=== PATIENT | female | born 1965 | race Caucasian/White ===

== ENCOUNTER 2020-03-09 22:43 | Emergency (ER) | payer MEDICARE, OTHER ==
[2020-03-09] MEDS ORDERED: Ibuprofen 800 MG Tab PO ONE (22:46)
[2020-03-09] MEDS ORDERED: Acetaminophen 500 MG Tab PO ONE (22:46)
[2020-03-09] MEDS ORDERED: Amoxicillin/Clavulanate K 875-125 MG Tab PO STA (22:46)
--- NOTE | 2020-03-09 22:51 | EDM.PDOC ---
ED HPI GENERAL MEDICAL PROBLEM - General Stated Complaint: cat scratch Time Seen by Provider: 03/09/20 22:45 Source of Information: Reports: Patient History Limitations: Reports: No Limitations - History of Present Illness INITIAL COMMENTS - FREE TEXT/NARRATIVE: Patient presented to the ED because of pain,redness, and swelling over her right leg. She was scratched by a neighbors cat yesterda. - Related Data Allergies Allergy/AdvReac Type Severity Reaction Status Date / Time azithromycin Allergy Rash Verified 03/09/20 23:02 erythromycin base Allergy Rash Verified 03/09/20 23:02 Penicillins Allergy Rash Verified 03/09/20 23:02 Home Meds: Home Meds Amoxicillin/Clavulanate K [Augmentin 875-125 MG] 1 tab PO BID #20 tab 03/09/20 [Rx] Cevimeline HCl 30 mg PO TID 03/09/20 [History] DULoxetine [Cymbalta] 30 mg PO BEDTIME 03/09/20 [History] DULoxetine [Cymbalta] 60 mg PO DAILY 03/09/20 [History] Gabapentin [Neurontin] 300 mg PO TID 03/09/20 [History] Ibuprofen 800 mg PO Q8H PRN #30 tablet 03/09/20 [Rx] Oxybutynin 5 mg PO DAILY 03/09/20 [History] cephALEXin [Keflex] 500 mg PO Q8H #30 cap 03/09/20 [Rx] traZODone HCl [Trazodone HCl] 200 mg PO BEDTIME 03/09/20 [History] ED ROS GENERAL - Review of Systems Review Of Systems: See Below Constitutional: Reports: No Symptoms HEENT: Reports: No Symptoms Respiratory: Reports: No Symptoms Cardiovascular: Reports: No Symptoms Endocrine: Reports: No Symptoms GI/Abdominal: Reports: No Symptoms : Reports: No Symptoms Musculoskeletal: Reports: No Symptoms Skin: Reports: Rash ED EXAM, SKIN/RASH Exam: See Below Exam Limited By: No Limitations General Appearance: Alert, No Apparent Distress Ears: Normal External Exam, Normal Canal Nose: Normal Inspection, Normal Mucosa Throat/Mouth: Normal Inspection, Normal Lips, Normal Teeth Head: Atraumatic, Normocephalic Neck: Normal Inspection, Supple, Non-Tender, Full Range of Motion Respiratory/Chest: No Respiratory Distress, Lungs Clear, Normal Breath Sounds Cardiovascular: Normal Peripheral Pulses, Regular Rate, Rhythm, No Edema, No Gallop GI/Abdominal: Normal Bowel Sounds, Soft, Non-Tender, No Organomegaly Back Exam: Normal Inspection, Full Range of Motion Extremities: Normal Inspection, Normal Range of Motion, Non-Tender Neurological: Alert, Oriented, CN II-XII Intact, Normal Cognition, Normal Gait Psychiatric: Normal Affect, Normal Mood Skin: Warm, Intact, Erythema Course - Vital Signs Text/Narrative:: Keflex 500 mg po x1 Ibuprofen 800 mg with tylenol 1000 mg po x1 - Orders/Labs/Meds Meds: Medications Discontinued Medications Generic Name Dose Route Start Last Admin Trade Name Freq PRN Reason Stop Dose Admin Acetaminophen 1,000 mg 03/09/20 22:46 Tylenol Extra Strength PO 03/09/20 22:47 ONETIME ONE Amoxicillin/Clavulanate Potassium 1 tab 03/09/20 22:46 Augmentin 875 Mg/125 Mg PO 03/09/20 22:47 NOW STA Cephalexin 500 mg 03/09/20 23:02 Keflex PO 03/09/20 23:03 NOW STA Ibuprofen 800 mg 03/09/20 22:46 Motrin PO 03/09/20 22:47 ONETIME ONE Departure - Departure Time of Disposition: 23:15 Disposition: Home, Self-Care 01 Condition: Good Clinical Impression: Cat scratch fever - Discharge Information Prescriptions: Amoxicillin/Clavulanate K [Augmentin 875-125 MG] 1 tab PO BID #20 tab Ibuprofen 800 mg PO Q8H PRN #30 tablet PRN Reason: Pain cephALEXin [Keflex] 500 mg PO Q8H #30 cap Instructions: Cat-Scratch Disease, Adult Referrals: Shayy Vallecillo NP [Primary Care Provider] - Additional Instructions: Please read discharge instructions on cat scratch fever Take keflex 500 mg 3 times daily for 10days Ibuprofen 800 mg with tylenol 1000 mg every 8 ours as needed for pain/fever Follow up as needed
[2020-03-09] MEDS ORDERED: Cephalexin 500 MG Cap PO STA (23:02)
== END 2020-03-09 23:24 | disposition home or self-care (01) ==
LOC: FB.ED 22:43
DX: A28.1 Cat-scratch disease (principal); Z88.1 Allergy status to other antibiotic agents; Z88.0 Allergy status to penicillin; Z79.899 Other long term (current) drug therapy
CPT/HCPCS: 99283; A9270

== ENCOUNTER 2020-04-20 06:39 | Emergency (ER) | payer MEDICARE, OTHER ==
[2020-04-20] MEDS ORDERED: LORazepam 2 MG/ML SDV IVPUSH ONE (06:51)
[2020-04-20] MEDS ORDERED: Sodium Chloride 0.9% 10 ML Syringe FLUSH PRN (06:55)
[2020-04-20] MEDS ORDERED: Ondansetron 4 MG/2 ML SDV IVPUSH ONE (07:29)
[2020-04-20] MEDS ORDERED: Sodium Chloride 0.9% 1,000 ML IV ONE (08:22)
--- NOTE | 2020-04-20 08:44 | EDM.PDOC ---
ED HPI GENERAL MEDICAL PROBLEM - General Chief Complaint: Neuro Symptoms/Deficits Stated Complaint: SEIZURE Time Seen by Provider: 04/20/20 07:00 Source of Information: Reports: Patient History Limitations: Reports: No Limitations - History of Present Illness INITIAL COMMENTS - FREE TEXT/NARRATIVE: pt comes in from home seizing at entrance of the ER , she had a tonic clonic Sz lasting about 10 minutes here, resolved after ativan, pt became post ictal for about an hour, now she is still confused but follow commands and answer questions appropriately, tells me she has not been feeling well since placement of her morphine pump 2 days ago, described anorexia, poor feeding and gen weakness, this morning woke up experiencing fever and chills and does not remember what happened after that. pt report Hx of chronic low back pain and depression . pt denies any Hx of head trauma, any cough or chest pain or urinary sx or any other associated sx or medical concerns. - Related Data Allergies Allergy/AdvReac Type Severity Reaction Status Date / Time azithromycin Allergy Rash Verified 04/20/20 07:19 erythromycin base Allergy Rash Verified 04/20/20 07:19 Penicillins Allergy Rash Verified 04/20/20 07:19 Home Meds: Home Meds Cevimeline HCl 30 mg PO TID 03/09/20 [History] DULoxetine [Cymbalta] 30 mg PO DAILY 03/09/20 [History] DULoxetine [Cymbalta] 60 mg PO BEDTIME 03/09/20 [History] Gabapentin [Neurontin] 900 mg PO TID 03/09/20 [History] Oxybutynin 10 mg PO DAILY 03/09/20 [History] traZODone HCl [Trazodone HCl] 200 mg PO BEDTIME 03/09/20 [History] Albuterol Sulfate [Albuterol Sulfate Hfa] 2 puff IH Q4H PRN 04/20/20 [History] Fluticasone Propion/Salmeterol [Advair 250-50 Diskus] 1 each IH BID 04/20/20 [History] Hydrocodone/Acetaminophen [[place] 5-325 Tablet] 1 each PO Q4H 04/20/20 [History] Varenicline [Chantix] 1 mg PO BID 04/20/20 [History] atorvaSTATin [Lipitor] 10 mg PO DAILY 04/20/20 [History] Past Medical History Respiratory History: Reports: Asthma Gastrointestinal History: Reports: Other (See Below) Other Gastrointestinal History: History of stomach CA, in remission now. Musculoskeletal History: Reports: Other (See Below) Other Musculoskeletal History: Has experienced leg pain since having non- Hodgkins Lymphoma, uses pain pump for control. Neurological History: Reports: Other (See Below) Other Neuro History: Episode of seizure-like activity, 04-20-20. Psychiatric History: Reports: Depression Immunologic History: Reports: Other (See Below) Other Immunologic History: Sjogrens. Oncologic (Cancer) History: Reports: Non-Hodgkin's Lymphoma Social & Family History - Family History Family Medical History: Noncontributory - Tobacco Use Smoking Status *Q: Current Every Day Smoker Years of Tobacco use: 35 Packs/Tins Daily: 1 - Caffeine Use Caffeine Use: Reports: Coffee, Soda ED ROS GENERAL - Review of Systems Review Of Systems: See Below Constitutional: Reports: Fatigue HEENT: Reports: No Symptoms Respiratory: Reports: No Symptoms Cardiovascular: Reports: No Symptoms GI/Abdominal: Denies: Abdominal Pain, Diarrhea : Reports: No Symptoms Musculoskeletal: Reports: Back Pain Skin: Reports: No Symptoms Neurological: Reports: Headache, Seizure, Weakness Psychiatric: Reports: Depression ED EXAM, GENERAL - Physical Exam Exam: See Below Exam Limited By: No Limitations General Appearance: Alert, No Apparent Distress Eye Exam: Bilateral Eye: Normal Inspection Nose: Normal Inspection Throat/Mouth: Normal Inspection, Normal Oropharynx Head: Atraumatic, Normocephalic Neck: Normal Inspection, Supple Respiratory/Chest: No Respiratory Distress, No Accessory Muscle Use Cardiovascular: Normal Peripheral Pulses, Regular Rate, Rhythm GI/Abdominal: Normal Bowel Sounds, Soft, Non-Tender Back Exam: Normal Inspection, Full Range of Motion Extremities: Normal Inspection, Normal Range of Motion Neurological: Alert, Oriented, CN II-XII Intact Skin Exam: Warm Course - Vital Signs Text/Narrative:: pt is alert now after 2 mg ativan , still looking little confused and weak, labs / CXR/ CT results were explained to pt. WBC and lactic acid are elevated without obvious source of infection , covid test is neg. pt had tonic clonic SZ and presumed sepsis Discussed with Dr solorio at [place] and he was in acceptance of pt care. blood cultures were taken , vancomycin was given Last Recorded V/S: Last Vital Signs Temp 38.7 C H 04/20/20 07:15 Pulse Resp BP Pulse Ox - Orders/Labs/Meds Orders: Active Orders 24 hr Category Date Time Status Chest 1V Frontal [CR] Stat Exams 04/20/20 06:51 Taken Head wo Cont [CT] Stat Exams 04/20/20 06:51 Taken CORONAVIRUS COVID-19 PCR PHL Stat Lab 04/20/20 09:17 Ordered CULTURE BLOOD [BC] Urgent Lab 04/20/20 07:20 Received CULTURE BLOOD [BC] Urgent Lab 04/20/20 07:25 Results Sodium Chloride 0.9% [Normal Saline] 1,000 ml Med 04/20/20 08:22 Active IV .BOLUS Sodium Chloride 0.9% [Saline Flush] Med 04/20/20 06:55 Active 10 ml FLUSH ASDIRECTED PRN cefTRIAXone [Rocephin] 1 gm Med 04/20/20 09:18 Ordered Sodium Chloride 0.9% [Normal Saline] 50 ml IV ONETIME Blood Culture x2 Reflex Set [OM.PC] Urgent Oth 04/20/20 07:20 Ordered Medication Orders Sodium Chloride (Normal Saline) 1,000 mls @ 999 mls/hr IV .BOLUS ONE Stop: 04/20/20 09:22 Last Admin: 04/20/20 08:20 Dose: 999 mls/hr Documented by: RAMIRO Sodium Chloride (Saline Flush) 10 ml FLUSH ASDIRECTED PRN PRN Reason: Keep Vein Open Last Admin: 04/20/20 06:55 Dose: 10 ml Documented by: GREGORIO Labs: Laboratory Tests 04/20/20 04/20/20 04/20/20 Range/Units 07:10 07:10 07:20 WBC 16.6 H (4.5-12.0) X10-3/uL RBC 5.86 H (3.23-5.20) x10(6)uL Hgb 17.3 H (11.5-15.5) g/dL Hct 52.7 H (30.0-51.3) % MCV 90.0 (80-96) fL MCH 29.5 (27.7-33.6) pg MCHC 32.8 (32.2-35.4) g/dL RDW 14.0 (11.5-15.5) % Plt Count 270 (125-369) X10(3)uL MPV 8.0 (7.4-10.4) fL Neut % (Auto) 78.6 (46-82) % Lymph % (Auto) 10.9 L (13-37) % [place] % (Auto) 8.4 (4-12) % Eos % (Auto) 0 L (1.0-5.0) % Baso % (Auto) 2 (0-2) % Neut # (Auto) 12.9 H (1.6-8.3) # Lymph # (Auto) 1.8 (0.6-5.0) # [place] # (Auto) 1.4 H (0.0-1.3) # Eos # (Auto) 0.1 (0.0-0.8) # Baso # (Auto) 0.3 H (0.0-0.2) # Sodium (135-145) mmol/L Potassium (3.5-5.3) mmol/L Chloride (100-110) mmol/L Carbon Dioxide (21-32) mmol/L BUN (7-18) mg/dL Creatinine (0.55-1.02) mg/dL Est Cr Clr Drug Dosing mL/min Estimated GFR (MDRD) (>60) BUN/Creatinine Ratio (9-20) Glucose (80-116) mg/dL Lactic Acid (0.4-2.0) mmol/L Calcium (8.6-10.2) mg/dL Total Bilirubin (0.1-1.3) mg/dL AST (5-25) IU/L ALT (12-36) U/L Alkaline Phosphatase (56-112) IU/L Total Protein (6.0-8.0) g/dL Albumin (3.5-5.2) g/dL Globulin g/dL Albumin/Globulin Ratio Urine Color [place] (YELLOW) Urine Appearance Cloudy (CLEAR) Urine pH 5.0 (5.0-6.5) Ur Specific [place] 1.025 (1.010-1.025) Urine Protein 100 H (NEGATIVE) mg/dL Urine Glucose (UA) Normal (NORMAL) mg/dL Urine Ketones Negative (NEGATIVE) mg/dL Urine Occult Blood Large H (NEGATIVE) Urine Nitrite Negative (NEGATIVE) Urine Bilirubin Negative (NEGATIVE) Urine Urobilinogen Normal (NEGATIVE) mg/dL Ur Leukocyte Esterase Negative (NEGATIVE) Urine RBC Packed H (0-5) Urine Opiates Screen Positive H (NEGATIVE) Ur Oxycodone Screen Positive H (NEGATIVE) Ur Propoxyphene Screen Negative (NEGATIVE) Ur Barbituates Screen Negative (NEGATIVE) Ur Tricyclics Screen Negative (NEGATIVE) Ur Phencyclidine Scrn Negative (NEGATIVE) Ur Amphetamine Screen Negative (NEGATIVE) Urine MDMA Screen Negative (NEGATIVE) U Benzodiazepines Scrn Negative (NEGATIVE) U Cocaine Metab Screen Negative (NEGATIVE) U Marijuana (THC) Screen Negative (NEGATIVE) 04/20/20 04/20/20 Range/Units 07:20 07:20 WBC (4.5-12.0) X10-3/uL RBC (3.23-5.20) x10(6)uL Hgb (11.5-15.5) g/dL Hct (30.0-51.3) % MCV (80-96) fL MCH (27.7-33.6) pg MCHC (32.2-35.4) g/dL RDW (11.5-15.5) % Plt Count (125-369) X10(3)uL MPV (7.4-10.4) fL Neut % (Auto) (46-82) % Lymph % (Auto) (13-37) % [place] % (Auto) (4-12) % Eos % (Auto) (1.0-5.0) % Baso % (Auto) (0-2) % Neut # (Auto) (1.6-8.3) # Lymph # (Auto) (0.6-5.0) # [place] # (Auto) (0.0-1.3) # Eos # (Auto) (0.0-0.8) # Baso # (Auto) (0.0-0.2) # Sodium 142 (135-145) mmol/L Potassium 2.6 L* (3.5-5.3) mmol/L Chloride 101 (100-110) mmol/L Carbon Dioxide 24 (21-32) mmol/L BUN 11 (7-18) mg/dL Creatinine 1.3 H (0.55-1.02) mg/dL Est Cr Clr Drug Dosing 48.74 mL/min Estimated GFR (MDRD) 42 L (>60) BUN/Creatinine Ratio 8.5 L (9-20) Glucose 147 H (80-116) mg/dL Lactic Acid 5.7 H* (0.4-2.0) mmol/L Calcium 9.3 (8.6-10.2) mg/dL Total Bilirubin 0.7 (0.1-1.3) mg/dL AST 22 (5-25) IU/L ALT 18 (12-36) U/L Alkaline Phosphatase 118 H (56-112) IU/L Total Protein 8.8 H (6.0-8.0) g/dL Albumin 3.7 (3.5-5.2) g/dL Globulin 5.1 g/dL Albumin/Globulin Ratio 0.7 Urine Color (YELLOW) Urine Appearance (CLEAR) Urine pH (5.0-6.5) Ur Specific [place] (1.010-1.025) Urine Protein (NEGATIVE) mg/dL Urine Glucose (UA) (NORMAL) mg/dL Urine Ketones (NEGATIVE) mg/dL Urine Occult Blood (NEGATIVE) Urine Nitrite (NEGATIVE) Urine Bilirubin (NEGATIVE) Urine Urobilinogen (NEGATIVE) mg/dL Ur Leukocyte Esterase (NEGATIVE) Urine RBC (0-5) Urine Opiates Screen (NEGATIVE) Ur Oxycodone Screen (NEGATIVE) Ur Propoxyphene Screen (NEGATIVE) Ur Barbituates Screen (NEGATIVE) Ur Tricyclics Screen (NEGATIVE) Ur Phencyclidine Scrn (NEGATIVE) Ur Amphetamine Screen (NEGATIVE) Urine MDMA Screen (NEGATIVE) U Benzodiazepines Scrn (NEGATIVE) U Cocaine Metab Screen (NEGATIVE) U Marijuana (THC) Screen (NEGATIVE) Meds: Medications Generic Name Dose Route Start Last Admin Trade Name Freq PRN Reason Stop Dose Admin Sodium Chloride 1,000 mls @ 999 mls/hr 04/20/20 08:22 04/20/20 08:20 Normal Saline IV 04/20/20 09:22 999 mls/hr .BOLUS ONE Administration Sodium Chloride 10 ml 04/20/20 06:55 04/20/20 06:55 Saline Flush FLUSH 10 ml ASDIRECTED PRN Administration Keep Vein Open Discontinued Medications Generic Name Dose Route Start Last Admin Trade Name Freq PRN Reason Stop Dose Admin Vancomycin HCl 1,500 mg/ 250 mls @ 166.667 mls/hr 04/20/20 08:55 Sodium Chloride IV 04/20/20 08:56 ONETIME ONE Lorazepam 2 mg 04/20/20 06:51 04/20/20 06:55 Ativan IVPUSH 04/20/20 06:52 2 mg ONETIME ONE Administration Ondansetron HCl 4 mg 04/20/20 07:29 04/20/20 08:03 Zofran IVPUSH 04/20/20 07:30 4 mg ONETIME ONE Administration Departure - Departure Time of Disposition: 09:23 Disposition: DC/Tfer to Other 70 Clinical Impression: Sepsis - Discharge Information Referrals: Shayy Vallecillo NP [Primary Care Provider] - Forms: ED Department Discharge Sepsis Event Note (ED) - Evaluation Sepsis Screening Result: No Definite Risk - Focused Exam Vital Signs: Vital Signs Temp Temp 04/20/20 07:15 38.7 C H 04/20/20 06:45 36.6 C - My Orders Last 24 Hours: My Active Orders 04/20/20 06:51 Chest 1V Frontal [CR] Stat Head wo Cont [CT] Stat 04/20/20 06:55 Sodium Chloride 0.9% [Saline Flush] 10 ml FLUSH ASDIRECTED PRN 04/20/20 07:20 CULTURE BLOOD [BC] Urgent Blood Culture x2 Reflex Set [OM.PC] Urgent 04/20/20 07:25 CULTURE BLOOD [BC] Urgent 04/20/20 08:22 Sodium Chloride 0.9% [Normal Saline] 1,000 ml IV .BOLUS 04/20/20 09:17 CORONAVIRUS COVID-19 PCR PHL Stat 04/20/20 09:18 cefTRIAXone [Rocephin] 1 gm Sodium Chloride 0.9% [Normal Saline] 50 ml IV ONETIME - Assessment/Plan Last 24 Hours: My Active Orders 04/20/20 06:51 Chest 1V Frontal [CR] Stat Head wo Cont [CT] Stat 04/20/20 06:55 Sodium Chloride 0.9% [Saline Flush] 10 ml FLUSH ASDIRECTED PRN 04/20/20 07:20 CULTURE BLOOD [BC] Urgent Blood Culture x2 Reflex Set [OM.PC] Urgent 04/20/20 07:25 CULTURE BLOOD [BC] Urgent 04/20/20 08:22 Sodium Chloride 0.9% [Normal Saline] 1,000 ml IV .BOLUS 04/20/20 09:17 CORONAVIRUS COVID-19 PCR PHL Stat 04/20/20 09:18 cefTRIAXone [Rocephin] 1 gm Sodium Chloride 0.9% [Normal Saline] 50 ml IV ONETIME
[2020-04-20] MEDS ORDERED: cefTRIAXone 1 GM in Sodium Chloride 0.9% 50 ML IV ONE (09:18)
[2020-04-20] MEDS ORDERED: cefTRIAXone 1 GM Vial IVPUSH ONE (09:24)
[2020-04-20] MEDS ORDERED: Vancomycin 1 GM, Vancomycin 500 MG in Sodium Chloride 0.9% 500 ML IV ONE (10:00)
[2020-04-20] MEDS ORDERED: Sodium Chloride 0.9% 1,000 ML IV SCH (10:00)
== END 2020-04-20 11:11 | disposition other institution (70) ==
LOC: FB.ED 06:39
DX: A41.9 Sepsis, unspecified organism (principal); J45.909 Unspecified asthma, uncomplicated; F32.9 Major depressive disorder, single episode, unspecified; F17.210 Nicotine dependence, cigarettes, uncomplicated; Z88.1 Allergy status to other antibiotic agents; Z88.0 Allergy status to penicillin; Z79.899 Other long term (current) drug therapy; Z20.828 Contact with and (suspected) exposure to other viral communicable diseases
CPT/HCPCS: 36415; 70450; 71045; 80053; 80305; 81001; 83605; 85025; 87040; 96361; 96365; 96366; 96375; 99285; J0696; J2060; J2405; J3370; J7030; U0002

== ENCOUNTER 2020-04-26 22:28 | Emergency (ER) | payer MEDICARE, OTHER ==
[~2020-04-26 22:28] MED LIST: Nitroglycerin 0.4 MG Tab.SL SL PRN
--- NOTE | 2020-04-26 22:56 | EDM.PDOC ---
ED HPI GENERAL MEDICAL PROBLEM - General Stated Complaint: LIGHT HEADED Time Seen by Provider: 04/26/20 22:55 Source of Information: Reports: Patient History Limitations: Reports: No Limitations - History of Present Illness INITIAL COMMENTS - FREE TEXT/NARRATIVE: today was in kitchen when she slipped , felt lightheaded and fell but held onto edge of kitchen and did not fall and hit the ground states she was helped up by her fiance did not loose consciousness decided to come in and get checked since she still did not fell well was seen on wednesday after a fall that she had hit her head: hit the back of her head had seizure was brought here and then transfered to [facility] Was sent home : to FU with neurologist and her oncologist ( has history of stomach cancer) had full WO done in [place] including : MRI, CT abd and pelvis , EEG pending Onset: Today Onset Date: 04/27/20 Onset Time: 22:00 Duration: Resolved Prior to Arrival Location: Reports: Chest Quality: Reports: Sharp Severity: Mild Context: Denies: Activity Associated Symptoms: Reports: Syncope (almost passed out, but then was caught, did not hit her head), Weakness Feet Pain Score (Numeric/FACES): 4 - Related Data Allergies Allergy/AdvReac Type Severity Reaction Status Date / Time azithromycin Allergy Rash Verified 04/26/20 22:59 erythromycin base Allergy Rash Verified 04/26/20 22:59 Penicillins Allergy Rash Verified 04/26/20 22:59 Home Meds: Home Meds Cevimeline HCl 30 mg PO TID 03/09/20 [History] DULoxetine [Cymbalta] 30 mg PO DAILY 03/09/20 [History] DULoxetine [Cymbalta] 60 mg PO BEDTIME 03/09/20 [History] Gabapentin [Neurontin] 900 mg PO TID 03/09/20 [History] Oxybutynin 10 mg PO DAILY 03/09/20 [History] traZODone HCl [Trazodone HCl] 200 mg PO BEDTIME 03/09/20 [History] Albuterol Sulfate [Albuterol Sulfate Hfa] 2 puff IH Q4H PRN 04/20/20 [History] Fluticasone Propion/Salmeterol [Advair 250-50 Diskus] 1 each IH BID 04/20/20 [History] Hydrocodone/Acetaminophen [[place] 5-325 Tablet] 1 each PO Q4H 04/20/20 [History] Varenicline [Chantix] 1 mg PO BID 04/20/20 [History] atorvaSTATin [Lipitor] 10 mg PO DAILY 04/20/20 [History] Past Medical History Respiratory History: Reports: Asthma Gastrointestinal History: Reports: Other (See Below) Other Gastrointestinal History: history of stomach CA, in remission now Musculoskeletal History: Reports: Other (See Below) Other Musculoskeletal History: Has experienced leg pain since having non- Hodgkins Lymphoma, uses pain pump for control. Neurological History: Reports: Other (See Below) Other Neuro History: Episode of seizure-like activity, 04-20-20. Psychiatric History: Reports: Depression Immunologic History: Reports: Other (See Below) Other Immunologic History: sjogrens Oncologic (Cancer) History: Reports: Non-Hodgkin's Lymphoma Social & Family History - Family History Family Medical History: Noncontributory - Caffeine Use Caffeine Use: Reports: Coffee, Soda ED ROS GENERAL - Review of Systems Review Of Systems: See Below Constitutional: Reports: Malaise, Weakness, Fatigue. Denies: Diaphoresis HEENT: Reports: No Symptoms Respiratory: Reports: Pleuritic Chest Pain. Denies: Shortness of Breath, Cough, Sputum Cardiovascular: Reports: No Symptoms Endocrine: Reports: Fatigue GI/Abdominal: Reports: No Symptoms : Reports: No Symptoms Musculoskeletal: Reports: No Symptoms Skin: Reports: No Symptoms, Diaphoresis Neurological: Reports: Dizziness - Physical Exam Exam: See Below Exam Limited By: No Limitations General Appearance: Alert, WD/WN, No Apparent Distress Eye Exam: Bilateral Eye: EOMI Ears: Normal External Exam Nose: Normal Inspection Throat/Mouth: Normal Inspection Head Exam: Atraumatic, Normocephalic Neck: Supple, Non-Tender Respiratory/Chest: No Respiratory Distress, Lungs Clear Cardiovascular: Normal Peripheral Pulses, Regular Rate, Rhythm Neuro Exam (Abbreviated): Alert, Oriented, CN II-XII Intact, Normal Cognition, Normal Gait DTR: 2+: Patella (R), Patella (L) Extremities: Normal Inspection, Normal Range of Motion Psychiatric: Normal Affect, Normal Mood Skin Exam: Dry, Intact Course - Vital Signs Last Recorded V/S: Last Vital Signs Temp 36.3 C 04/26/20 23:30 Pulse 83 04/27/20 02:15 Resp 16 04/27/20 02:15 BP 132/79 04/27/20 02:15 Pulse Ox 97 04/27/20 02:15 - Orders/Labs/Meds Orders: Active Orders 24 hr Category Date Time Status CULTURE URINE [RM] Stat Lab 04/27/20 02:06 Received EKG 12 Lead [EK] Routine Ther 04/26/20 23:01 Ordered EKG 12 Lead [EK] Routine Ther 04/27/20 00:17 Ordered Medication Orders Nitroglycerin (Nitrostat) 0.4 mg SL Q5M PRN PRN Reason: Chest Pain Last Admin: 04/27/20 01:22 Dose: 0.4 mg Documented by: ELISSA Labs: Laboratory Tests 04/26/20 04/26/20 04/26/20 Range/Units 23:15 23:15 23:15 WBC 10.8 (4.5-12.0) X10-3/uL RBC 5.09 (3.23-5.20) x10(6)uL Hgb 15.2 (11.5-15.5) g/dL Hct 46.4 (30.0-51.3) % MCV 91.1 (80-96) fL MCH 29.9 (27.7-33.6) pg MCHC 32.8 (32.2-35.4) g/dL RDW 13.8 (11.5-15.5) % Plt Count 260 (125-369) X10(3)uL MPV 8.5 (7.4-10.4) fL Neutrophils % (Manual) 52 (46-82) % Lymphocytes % (Manual) 38 H (13-37) % Monocytes % (Manual) 7 (4-12) % Eosinophils % (Manual) 2 (0-5) % Basophils % (Manual) 1 (0-2) % PT (9.0-11.1) sec INR (1.00-1.24) Sodium 138 (135-145) mmol/L Potassium 3.4 L (3.5-5.3) mmol/L Chloride 99 L (100-110) mmol/L Carbon Dioxide 30 (21-32) mmol/L BUN 22 H D (7-18) mg/dL Creatinine 1.0 (0.55-1.02) mg/dL Est Cr Clr Drug Dosing 61.09 mL/min Estimated GFR (MDRD) 57 L (>60) BUN/Creatinine Ratio 22.0 H (9-20) Glucose 104 (80-116) mg/dL Calcium 8.8 (8.6-10.2) mg/dL Magnesium (1.8-2.5) mg/dL Total Bilirubin 0.5 (0.1-1.3) mg/dL AST 23 (5-25) IU/L ALT 37 H D (12-36) U/L Alkaline Phosphatase 71 (56-112) IU/L Troponin I (4.0-60.3) pg/mL NT-Pro-B Natriuret Pep 2637 H* (<=125) pg/mL Total Protein 6.8 (6.0-8.0) g/dL Albumin 3.1 L (3.5-5.2) g/dL Globulin 3.7 g/dL Albumin/Globulin Ratio 0.8 TSH, Ultra Sensitive 1.74 (0.36-3.74) IU/mL Urine Color (YELLOW) Urine Appearance (CLEAR) Urine pH (5.0-6.5) Ur Specific [place] (1.010-1.025) Urine Protein (NEGATIVE) mg/dL Urine Glucose (UA) (NORMAL) mg/dL Urine Ketones (NEGATIVE) mg/dL Urine Occult Blood (NEGATIVE) Urine Nitrite (NEGATIVE) Urine Bilirubin (NEGATIVE) Urine Urobilinogen (NEGATIVE) mg/dL Ur Leukocyte Esterase (NEGATIVE) Urine RBC (0-5) Urine WBC (0-5) Ur Squamous Epith Cells (NS,R,O) Urine Bacteria (NS) Urine Mucus (NS) 04/26/20 04/26/20 04/27/20 Range/Units 23:15 23:15 00:51 WBC (4.5-12.0) X10-3/uL RBC (3.23-5.20) x10(6)uL Hgb (11.5-15.5) g/dL Hct (30.0-51.3) % MCV (80-96) fL MCH (27.7-33.6) pg MCHC (32.2-35.4) g/dL RDW (11.5-15.5) % Plt Count (125-369) X10(3)uL MPV (7.4-10.4) fL Neutrophils % (Manual) (46-82) % Lymphocytes % (Manual) (13-37) % Monocytes % (Manual) (4-12) % Eosinophils % (Manual) (0-5) % Basophils % (Manual) (0-2) % PT 11.1 (9.0-11.1) sec INR 1.03 (1.00-1.24) Sodium (135-145) mmol/L Potassium (3.5-5.3) mmol/L Chloride (100-110) mmol/L Carbon Dioxide (21-32) mmol/L BUN (7-18) mg/dL Creatinine (0.55-1.02) mg/dL Est Cr Clr Drug Dosing mL/min Estimated GFR (MDRD) (>60) BUN/Creatinine Ratio (9-20) Glucose (80-116) mg/dL Calcium (8.6-10.2) mg/dL Magnesium 2.1 (1.8-2.5) mg/dL Total Bilirubin (0.1-1.3) mg/dL AST (5-25) IU/L ALT (12-36) U/L Alkaline Phosphatase (56-112) IU/L Troponin I 113.0 H* (4.0-60.3) pg/mL NT-Pro-B Natriuret Pep (<=125) pg/mL Total Protein (6.0-8.0) g/dL Albumin (3.5-5.2) g/dL Globulin g/dL Albumin/Globulin Ratio TSH, Ultra Sensitive (0.36-3.74) IU/mL Urine Color (YELLOW) Urine Appearance (CLEAR) Urine pH (5.0-6.5) Ur Specific [place] (1.010-1.025) Urine Protein (NEGATIVE) mg/dL Urine Glucose (UA) (NORMAL) mg/dL Urine Ketones (NEGATIVE) mg/dL Urine Occult Blood (NEGATIVE) Urine Nitrite (NEGATIVE) Urine Bilirubin (NEGATIVE) Urine Urobilinogen (NEGATIVE) mg/dL Ur Leukocyte Esterase (NEGATIVE) Urine RBC (0-5) Urine WBC (0-5) Ur Squamous Epith Cells (NS,R,O) Urine Bacteria (NS) Urine Mucus (NS) 04/27/20 Range/Units 02:06 WBC (4.5-12.0) X10-3/uL RBC (3.23-5.20) x10(6)uL Hgb (11.5-15.5) g/dL Hct (30.0-51.3) % MCV (80-96) fL MCH (27.7-33.6) pg MCHC (32.2-35.4) g/dL RDW (11.5-15.5) % Plt Count (125-369) X10(3)uL MPV (7.4-10.4) fL Neutrophils % (Manual) (46-82) % Lymphocytes % (Manual) (13-37) % Monocytes % (Manual) (4-12) % Eosinophils % (Manual) (0-5) % Basophils % (Manual) (0-2) % PT (9.0-11.1) sec INR (1.00-1.24) Sodium (135-145) mmol/L Potassium (3.5-5.3) mmol/L Chloride (100-110) mmol/L Carbon Dioxide (21-32) mmol/L BUN (7-18) mg/dL Creatinine (0.55-1.02) mg/dL Est Cr Clr Drug Dosing mL/min Estimated GFR (MDRD) (>60) BUN/Creatinine Ratio (9-20) Glucose (80-116) mg/dL Calcium (8.6-10.2) mg/dL Magnesium (1.8-2.5) mg/dL Total Bilirubin (0.1-1.3) mg/dL AST (5-25) IU/L ALT (12-36) U/L Alkaline Phosphatase (56-112) IU/L Troponin I (4.0-60.3) pg/mL NT-Pro-B Natriuret Pep (<=125) pg/mL Total Protein (6.0-8.0) g/dL Albumin (3.5-5.2) g/dL Globulin g/dL Albumin/Globulin Ratio TSH, Ultra Sensitive (0.36-3.74) IU/mL Urine Color Yellow (YELLOW) Urine Appearance Slightly cloudy (CLEAR) Urine pH 6.0 (5.0-6.5) Ur Specific [place] 1.010 (1.010-1.025) Urine Protein Negative (NEGATIVE) mg/dL Urine Glucose (UA) Normal (NORMAL) mg/dL Urine Ketones Negative (NEGATIVE) mg/dL Urine Occult Blood Moderate H (NEGATIVE) Urine Nitrite Negative (NEGATIVE) Urine Bilirubin Negative (NEGATIVE) Urine Urobilinogen 1 H (NEGATIVE) mg/dL Ur Leukocyte Esterase Moderate H (NEGATIVE) Urine RBC 5-10 H (0-5) Urine WBC 5-10 H (0-5) Ur Squamous Epith Cells Moderate H (NS,R,O) Urine Bacteria Moderate H (NS) Urine Mucus Few H (NS) Meds: Medications Generic Name Dose Route Start Last Admin Trade Name Freq PRN Reason Stop Dose Admin Nitroglycerin 0.4 mg 04/26/20 01:00 04/27/20 01:22 Nitrostat SL 0.4 mg Q5M PRN Administration Chest Pain Discontinued Medications Generic Name Dose Route Start Last Admin Trade Name Freq PRN Reason Stop Dose Admin Aspirin 324 mg 04/27/20 00:43 04/27/20 02:14 Aspirin PO 04/27/20 00:44 324 mg ONETIME ONE Administration Heparin Sodium (Porcine) 5,000 units 04/27/20 00:50 04/27/20 01:26 Heparin Sodium IVPUSH 04/27/20 00:51 5,000 units ONETIME ONE Administration Sodium Chloride 1,000 mls @ 999 mls/hr 04/27/20 00:44 04/27/20 01:26 Normal Saline IV 04/27/20 01:44 999 mls/hr .BOLUS ONE Administration Heparin Sodium/Sodium Chloride 500 mls @ 20 mls/hr 04/27/20 01:00 04/27/20 01:45 Heparin 25,000 Units In 1/2 Ns 500 Ml IV 20 mls/hr ASDIRECTED JAMES Administration Potassium Chloride 40 meq 04/26/20 23:56 04/27/20 01:26 Klor-Con M20 PO 04/26/20 23:57 40 meq ONETIME ONE Administration - Re-Assessments/Exams Free Text/Narrative Re-Assessment/Exam: 04/27/20 00:59 on reassessment pt noted that when she initially had syncopal episode she did get a sharp chest pain in the epigastrium , resolved at home before she arrived in ER has no history of heart disease or hypertension 04/27/20 02:03 discussed with roque in [facility] , agrees to transfer pt , Aspirin given , IV Heparin started pt did have and episode of chest pain , resolved with 1 nitroglycerin tab SL 04/27/20 02:07 Departure - Departure Time of Disposition: 02:30 Disposition: DC/Tfer to Other 70 Clinical Impression: NSTEMI (non-ST elevated myocardial infarction), Syncope and collapse, Weakness, Hypokalemia - Discharge Information *PRESCRIPTION DRUG MONITORING PROGRAM REVIEWED*: Not Applicable *COPY OF PRESCRIPTION DRUG MONITORING REPORT IN PATIENT RANDOLPH: Not Applicable Referrals: PCP,None [Primary Care Provider] - - My Orders Last 24 Hours: My Active Orders 04/26/20 23:01 EKG 12 Lead [EK] Routine 04/27/20 00:17 EKG 12 Lead [EK] Routine 04/27/20 02:06 CULTURE URINE [RM] Stat - Assessment/Plan Last 24 Hours: My Active Orders 04/26/20 23:01 EKG 12 Lead [EK] Routine 04/27/20 00:17 EKG 12 Lead [EK] Routine 04/27/20 02:06 CULTURE URINE [RM] Stat
[2020-04-26] MEDS ORDERED: Potassium Chloride 20 MEQ Tab.ER PO ONE (23:56)
[2020-04-27] MEDS ORDERED: Aspirin 81 MG Tab.Chew PO ONE (00:43)
[2020-04-27] MEDS ORDERED: Sodium Chloride 0.9% 1,000 ML IV ONE (00:44)
[2020-04-27] MEDS ORDERED: Heparin Sodium 5,000 Units/ML Vial IVPUSH ONE (00:50)
[2020-04-27] MEDS ORDERED: Heparin Sodium/0.45% NaCl 500 ML IV SCH (01:00)
== END 2020-04-27 02:30 | disposition other institution (70) ==
LOC: FB.ED 22:28
DX: I21.4 Non-ST elevation (NSTEMI) myocardial infarction (principal); E87.6 Hypokalemia; J45.909 Unspecified asthma, uncomplicated; F32.9 Major depressive disorder, single episode, unspecified; Z88.1 Allergy status to other antibiotic agents; Z88.0 Allergy status to penicillin; Z79.899 Other long term (current) drug therapy; Z85.028 Personal history of other malignant neoplasm of stomach
CPT/HCPCS: 36415; 80053; 81001; 83735; 83880; 84443; 84484; 85025; 85610; 87086; 87088; 87186; 93005; 96365; 99285; A9270; J1644; J7030; 36410

== ENCOUNTER 2020-05-05 18:28 | Emergency (ER) | payer MEDICARE, OTHER ==
--- NOTE | 2020-05-05 18:45 | EDM.PDOC ---
ED HPI GENERAL MEDICAL PROBLEM - General Stated Complaint: CHEST PAIN Time Seen by Provider: 05/05/20 18:40 Source of Information: Reports: Patient History Limitations: Reports: No Limitations - History of Present Illness INITIAL COMMENTS - FREE TEXT/NARRATIVE: 54-year-old female who reports at about 6 PM she was walking outside to go smoke a cigarette and she a squeezing type pain in her central chest that seemed to radiate over under her right breast but also to her left shoulder. She felt rather weak associated with this and had an associated headache with this. She reports that the pain was about a 7/10 and it was not reproducible with palpation or breathing. She had no nausea or vomiting associated with this. There was no shortness of breath associated with this. She was just recently in [facility] in [place] for what appeared to be a non-STEMI and was discharged on medication. She had a cardiac catheterization on that visit (04/27 to 04/29/2020) which showed clean coronary arteries and only slightly depressed ejection fraction. She reports that she has been feeling rather tired and somewhat dizzy since she was discharged from the hospital until today and through the day today she felt better than she had been for quite some time and she felt full of energy and had no chest discomfort or dizziness until approximately 6 PM tonight when she developed that pain at brought her to the emergency department. She apparently was brought to the emergency department via private vehicle by her . She has been eating and drinking normally today. She has had normal activity level today she has been taking her medicines as previously directed. The pain in her chest as ongoing now. There are no other associated signs or symptoms. There are no other modifying factors. Onset: Today (6 PM) Duration: Constant, Improving Location: Reports: Chest Quality: Reports: Other (Squeezing type pain) Severity: Moderate (to severe.) Improves with: Reports: None Worsens with: Reports: None Context: Reports: Other (As above.) Associated Symptoms: Reports: Chest Pain, Weakness Treatments MEDICAL RECORD ADMINISTRATOR: Reports: Other (see below) (Nothing.) mid chest Pain Score (Numeric/FACES): 6 - Related Data Allergies Allergy/AdvReac Type Severity Reaction Status Date / Time azithromycin Allergy Rash Verified 04/26/20 22:59 erythromycin base Allergy Rash Verified 04/26/20 22:59 Penicillins Allergy Rash Verified 04/26/20 22:59 Home Meds: Home Meds Cevimeline HCl 30 mg PO TID 03/09/20 [History] DULoxetine [Cymbalta] 30 mg PO DAILY 03/09/20 [History] DULoxetine [Cymbalta] 60 mg PO BEDTIME 03/09/20 [History] Gabapentin [Neurontin] 900 mg PO TID 03/09/20 [History] Oxybutynin 10 mg PO DAILY 03/09/20 [History] traZODone HCl [Trazodone HCl] 200 mg PO BEDTIME 03/09/20 [History] Albuterol Sulfate [Albuterol Sulfate Hfa] 2 puff IH Q4H PRN 04/20/20 [History] Fluticasone Propion/Salmeterol [Advair 250-50 Diskus] 1 each IH BID 04/20/20 [History] Hydrocodone/Acetaminophen [[place]water 5-325 Tablet] 1 each PO Q4H 04/20/20 [History] Varenicline [Chantix] 1 mg PO BID 04/20/20 [History] atorvaSTATin [Lipitor] 10 mg PO DAILY 04/20/20 [History] Past Medical History Respiratory History: Reports: Asthma Gastrointestinal History: Reports: Other (See Below) (Stomach lymphoma, 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 On chronic narcotic pain management. Neurological History: Reports: Other (See Below) Other Neuro History: Episode of seizure-like activity, 04-20-20. Psychiatric History: Reports: Depression Immunologic History: Reports: Other (See Below) Other Immunologic History: sjogrens Oncologic (Cancer) History: Reports: Non-Hodgkin's Lymphoma - Infectious Disease History Infectious Disease History: Reports: Chicken Pox, Measles, Mumps, Rubella - Past Surgical History HEENT Surgical History: Reports: Tonsillectomy Cardiovascular Surgical History: Reports: Other (See Below) (Cardiac catheterization) GI Surgical History: Reports: Appendectomy Female Surgical History: Reports: Tubal Ligation, Other (See Below) (Salpingectomy) Musculoskeletal Surgical History: Reports: ORIF (Of ankle) Other Surgical History Comment: Pain pump placed. Social & Family History - Tobacco Use Smoking Status *Q: Current Every Day Smoker - Caffeine Use Caffeine Use: Reports: Coffee, Soda - Alcohol Use Alcohol Use History: No Alcohol Use Comment: No alcohol use for the past 16-17 years. - Living Situation & Occupation Living situation: Reports: with Significant Other Occupation: Retired ED ROS GENERAL - Review of Systems Review Of Systems: See Below Constitutional: Reports: Malaise, Weakness HEENT: Reports: No Symptoms Respiratory: Reports: No Symptoms Cardiovascular: Reports: Chest Pain GI/Abdominal: Reports: No Symptoms : Reports: No Symptoms Musculoskeletal: Reports: No Symptoms Skin: Reports: No Symptoms Neurological: Reports: Dizziness, Weakness Hematologic/Lymphatic: Reports: No Symptoms Immunologic: Reports: No Symptoms ED EXAM, GENERAL - Physical Exam Exam: See Below Exam Limited By: No Limitations General Appearance: Alert, WD/WN, No Apparent Distress Eye Exam: Bilateral Eye: EOMI, Normal Inspection Ear Exam: Bilateral Ear: Auricle Normal Nose: Normal Inspection, Normal Mucosa, No Blood Throat/Mouth: Normal Inspection, Normal Oropharynx, Normal Voice, No Airway Compromise Head: Atraumatic, Normocephalic Neck: Normal Inspection, Supple, Non-Tender, Full Range of Motion Respiratory/Chest: No Respiratory Distress, Lungs Clear, Normal Breath Sounds, No Accessory Muscle Use, Chest Non-Tender Cardiovascular: Normal Peripheral Pulses, Regular Rate, Rhythm, No Edema, No JVD, No Murmur Peripheral Pulses: 2+: Radial (L), Radial (R), Dorsalis Pedis (L), Dorsalis Pedis (R) GI/Abdominal: Normal Bowel Sounds, Soft, Non-Tender, No Mass Back Exam: Normal Inspection Extremities: Normal Inspection, Normal Range of Motion, Non-Tender, No Pedal Edema, Normal Capillary Refill Neurological: Alert, Oriented, CN II-XII Intact, Normal Cognition, No Motor/Sensory Deficits Psychiatric: Normal Affect Skin Exam: Warm, Dry, Intact, Normal Color, No Rash Lymphatic: No Adenopathy EKG INTERPRETATION EKG Date: 05/05/20 Time: 18:30 Rhythm: NSR Rate (Beats/Min): 83 Custar: Normal P-Wave: Present QRS: Normal ST-T: Other (ST segments are upright and appear to the with early repolarization) QT: Prolonged (Prolonged QTc.) Comparison: Change From Previous EKG (Compared to previous EKG performed on 04/27/2020, the previous ST segment depressions and inversions in the anterior and lateral leads are now upright and even slightly hyperacute with early repolarization. There is no STEMI pattern.) EKG Interpretation Comments: Repeat EKG was performed at 9:30 PM on 2019. This was done because the patient had reported resolution of her pain and it was unchanged from the previous EKG. It had a normal axis with a rate of 75 and the same early repolarization and slightly hyperacute T waves anteriorly and laterally. Course - Vital Signs Last Recorded V/S: Last Vital Signs Temp 36.6 C 05/05/20 18:28 Pulse 67 05/05/20 23:32 Resp 16 05/05/20 23:32 BP 98/57 L 05/05/20 23:32 Pulse Ox 92 L 05/05/20 23:32 - Orders/Labs/Meds Orders: Active Orders 24 hr Category Date Time Status EKG Documentation Completion [RC] ASDIRECTED Care 05/05/20 19:11 Active EKG Documentation Completion [RC] ASDIRECTED Care 05/05/20 21:26 Active Ang Chest [CT] Stat Exams 05/05/20 21:25 Taken Chest 1V Frontal [CR] Stat Exams 05/05/20 20:23 Taken Sodium Chloride 0.9% [Normal Saline] 1,000 ml Med 05/05/20 19:15 Active IV ASDIRECTED Sodium Chloride 0.9% [Saline Flush] Med 05/05/20 19:10 Active 10 ml FLUSH ASDIRECTED PRN Peripheral IV Insertion Adult [OM.PC] Routine Oth 05/05/20 19:10 Ordered EKG 12 Lead [EK] Routine Ther 05/05/20 19:10 Ordered EKG 12 Lead [EK] Routine Ther 05/05/20 21:25 Ordered Medication Orders Sodium Chloride (Normal Saline) 1,000 mls @ 100 mls/hr IV ASDIRECTED JAMES Last Admin: 05/05/20 19:29 Dose: 100 mls/hr Documented by: [id number] Sodium Chloride (Saline Flush) 10 ml FLUSH ASDIRECTED PRN PRN Reason: Keep Vein Open Last Admin: 05/05/20 19:29 Dose: 10 ml Documented by: [id number] Labs: Laboratory Tests 05/05/20 05/05/20 05/05/20 Range/Units 19:25 19:25 19:25 WBC 9.9 (4.5-12.0) X10-3/uL RBC 4.19 (3.23-5.20) x10(6)uL Hgb 13.2 (11.5-15.5) g/dL Hct 38.6 (30.0-51.3) % MCV 92.0 (80-96) fL MCH 31.5 (27.7-33.6) pg MCHC 34.3 (32.2-35.4) g/dL RDW 14.3 (11.5-15.5) % Plt Count 285 (125-369) X10(3)uL MPV 8.2 (7.4-10.4) fL Neut % (Auto) 65.2 (46-82) % Lymph % (Auto) 22.9 (13-37) % Wake % (Auto) 5.8 (4-12) % Eos % (Auto) 2 (1.0-5.0) % Baso % (Auto) 4 H (0-2) % Neut # (Auto) 6.4 (1.6-8.3) # Lymph # (Auto) 2.3 (0.6-5.0) # Wake # (Auto) 0.6 (0.0-1.3) # Eos # (Auto) 0.2 (0.0-0.8) # Baso # (Auto) 0.4 H (0.0-0.2) # PT (9.0-11.1) sec INR (1.00-1.24) APTT (24.4-33.2) SECONDS D-Dimer, Quantitative (0.0-0.59) mg/LFEU Sodium 140 (135-145) mmol/L Potassium 3.8 (3.5-5.3) mmol/L Chloride 103 (100-110) mmol/L Carbon Dioxide 32 (21-32) mmol/L BUN 12 D (7-18) mg/dL Creatinine 0.9 (0.55-1.02) mg/dL Est Cr Clr Drug Dosing TNP Estimated GFR (MDRD) > 60 (>60) BUN/Creatinine Ratio 13.3 (9-20) Glucose 111 (80-116) mg/dL Calcium 8.2 L (8.6-10.2) mg/dL Magnesium 1.6 L (1.8-2.5) mg/dL Total Bilirubin 0.2 (0.1-1.3) mg/dL AST 12 D (5-25) IU/L ALT 19 D (12-36) U/L Alkaline Phosphatase 89 (56-112) IU/L Troponin I 36.3 (4.0-60.3) pg/mL NT-Pro-B Natriuret Pep 1417 H* (<=125) pg/mL Total Protein 6.3 (6.0-8.0) g/dL Albumin 2.7 L (3.5-5.2) g/dL Globulin 3.6 g/dL Albumin/Globulin Ratio 0.8 05/05/20 05/05/20 05/05/20 Range/Units 19:25 19:25 23:42 WBC (4.5-12.0) X10-3/uL RBC (3.23-5.20) x10(6)uL Hgb (11.5-15.5) g/dL Hct (30.0-51.3) % MCV (80-96) fL MCH (27.7-33.6) pg MCHC (32.2-35.4) g/dL RDW (11.5-15.5) % Plt Count (125-369) X10(3)uL MPV (7.4-10.4) fL Neut % (Auto) (46-82) % Lymph % (Auto) (13-37) % Wake % (Auto) (4-12) % Eos % (Auto) (1.0-5.0) % Baso % (Auto) (0-2) % Neut # (Auto) (1.6-8.3) # Lymph # (Auto) (0.6-5.0) # Wake # (Auto) (0.0-1.3) # Eos # (Auto) (0.0-0.8) # Baso # (Auto) (0.0-0.2) # PT 10.5 (9.0-11.1) sec INR 0.97 L (1.00-1.24) APTT 25.3 (24.4-33.2) SECONDS D-Dimer, Quantitative 0.67 H (0.0-0.59) mg/LFEU Sodium (135-145) mmol/L Potassium (3.5-5.3) mmol/L Chloride (100-110) mmol/L Carbon Dioxide (21-32) mmol/L BUN (7-18) mg/dL Creatinine (0.55-1.02) mg/dL Est Cr Clr Drug Dosing Estimated GFR (MDRD) (>60) BUN/Creatinine Ratio (9-20) Glucose (80-116) mg/dL Calcium (8.6-10.2) mg/dL Magnesium (1.8-2.5) mg/dL Total Bilirubin (0.1-1.3) mg/dL AST (5-25) IU/L ALT (12-36) U/L Alkaline Phosphatase (56-112) IU/L Troponin I 30.7 (4.0-60.3) pg/mL NT-Pro-B Natriuret Pep (<=125) pg/mL Total Protein (6.0-8.0) g/dL Albumin (3.5-5.2) g/dL Globulin g/dL Albumin/Globulin Ratio Meds: Medications Generic Name Dose Route Start Last Admin Trade Name Freq PRN Reason Stop Dose Admin Sodium Chloride 1,000 mls @ 100 mls/hr 05/05/20 19:15 05/05/20 19:29 Normal Saline IV 100 mls/hr ASDIRECTED JAMES Administration Sodium Chloride 10 ml 05/05/20 19:10 05/05/20 19:29 Saline Flush FLUSH 10 ml ASDIRECTED PRN Administration Keep Vein Open Discontinued Medications Generic Name Dose Route Start Last Admin Trade Name Freq PRN Reason Stop Dose Admin Aspirin 243 mg 05/05/20 19:12 05/05/20 19:22 Aspirin PO 05/05/20 19:13 243 mg ONETIME ONE Administration Sodium Chloride 500 mls @ 999 mls/hr 05/05/20 19:12 05/05/20 18:53 Normal Saline IV 05/05/20 19:42 999 mls/hr .BOLUS ONE Administration Iopamidol 100 ml 05/05/20 21:41 05/05/20 21:59 Isovue-370 (76%) IV 05/05/20 21:42 80 ml . DIRECTED ONE Administration Magnesium Oxide 800 mg 05/06/20 00:35 Magnesium Oxide PO 05/06/20 00:36 ONETIME ONE Magnesium Sulfate 2 gm 05/05/20 21:00 Magnesium Sulfate In Water Premix IV 05/05/20 21:01 ONETIME ONE Morphine Sulfate 2 mg 05/05/20 19:14 05/05/20 19:22 Morphine IVPUSH 05/05/20 19:15 2 mg ONETIME ONE Administration Ondansetron HCl 4 mg 05/05/20 19:14 05/05/20 19:21 Zofran IVPUSH 05/05/20 19:15 4 mg ONETIME ONE Administration - Radiology Interpretation Free Text/Narrative:: A single view chest x-ray showed no acute disease. CT angiogram of the chest showed no evidence of pulmonary emboli other acute intrathoracic abnormality and no cause for the chest pain was evident. This was per the [facility] radiologist. - Re-Assessments/Exams Free Text/Narrative Re-Assessment/Exam: 05/05/20 21:15: The patient's chest pain is completely resolved now. She had received morphine 2 mg IV. Her blood pressure remained in the 80-90 systolic range but I'm wondering if this is not her baseline. She is completely asymptomatic now respiratory distress. I will repeat the EKG at this point. Her d-dimer was slightly elevated at 0.67. I will send her for CT angiogram of the chest. 05/05/20 21:30: The repeat EKG is unchanged from previous. Weight the CT angio of her chest. Her blood S were for the most part reassuringly normal the magnesium level was slightly low and the plan will be to replace this. We'll c ontinue close monitoring for now. 05/05/20 23:15: The CT angiogram of the chest was negative for PE and any other acute abnormality and there was nothing that would explain the patient's chest pain. There was no evidence of CHF as well. She remained chest pain-free and her blood pressure is 90 systolic. She appears to be quite comfortable this point. I was able to get the discharge summary from the patient's recent visit to [facility] in [place] related to her supposed Non-STEMI and this showed that she had no evidence of coronary artery disease on the cardiac catheterization. She did have some slight depression in her ejection fraction. At this point, I discussed options with the patient as far as for further evaluation. I think one option would be for the patient be transferred back to [facility] in [place] for admission, serial cardiac enzymes and or reevaluation and reassessment through [facility] cardiology. Another possibility would be to repeat the patient's troponin at this time and that would represent a 4 hour post initial troponin and would be almost 6 hours post onset of her discomfort. If this troponin was either unchanged or less then the initial one, then it would pretty much rule out MN and it would make it less likely that there are any acute cardiac event going on particularly with the recently normal/clean coronary artery cardiac catheterization. I discussed these options with the patient and she would want option to with the chance for discharge home from here. She understands that this would be safe then transferring to [facility] in [place] with admission and serial cardiac enzymes but she would not want to be transferred to [facility] in [place]. 05/06/20 00:25: Repeat troponin is normal and actually less than the initial troponin. She has remained hemodynamically stable and chest pain-free. The patient reports that she is to be following up with her chief supply chain officer as coming week and I have rediscussed the options and she is still wishing to be discharged home at this point. She is to avoid any strenuous activity. She is to continue her medications as previously prescribed by the doctors at [facility] in [place] and precautions and reasons for return to the emergency department were discussed with the patient while she was in the emergency department and were detailed in the patient's discharge instructions. This point it was found out that the patient had not received the magnesium 2 g IV earlier. I will give the patient magnesium oxide and her milligrams orally now prior to discharge. Departure - Departure Time of Disposition: 00:33 Disposition: Home, Self-Care 01 Condition: Good (Improved) Clinical Impression: Ruled out for myocardial infarction Chest pain Qualifiers: Chest pain type: unspecified Qualified Code(s): R07.9 - Chest pain, unspecified Instructions: Nonspecific Chest Pain, Adult, [id number] Referrals: PCP,None [Primary Care Provider] - Forms: ED Department Discharge Additional Instructions: Your blood tests for the most part were reassuringly normal. Specifically, her heart enzymes were normal on both times that they were checked over time. Your magnesium level was slightly low and we gave you a supplement of this in the emergency department. Your chest x-ray and the CT scan of your chest showed no acute abnormalities. I am unsure why you had the chest pain. You did not have a heart attack. Continue to take your medications as prescribed by the doctors at [facility] in [place]. You should keep your follow-up appointment with your doctor this week. Stop smoking. Back to the emergency department for worsening chest pain, shortness of breath, severe weakness, unrelenting vomiting or any other concerning sign or symptom. Sepsis Event Note (ED) - Focused Exam Vital Signs: Vital Signs Temp Pulse Resp BP Pulse Ox 05/05/20 23:32 67 16 98/57 L 92 L 05/05/20 23:27 67 16 98/57 L 92 L 05/05/20 19:00 86 84/52 L 05/05/20 18:45 84 86/46 L 05/05/20 18:28 36.6 C 82 17 91/53 L 95 - My Orders Last 24 Hours: My Active Orders 05/05/20 19:10 Sodium Chloride 0.9% [Saline Flush] 10 ml FLUSH ASDIRECTED PRN Peripheral IV Insertion Adult [OM.PC] Routine EKG 12 Lead [EK] Routine 05/05/20 19:11 EKG Documentation Completion [RC] ASDIRECTED 05/05/20 19:15 Sodium Chloride 0.9% [Normal Saline] 1,000 ml IV ASDIRECTED 05/05/20 20:23 Chest 1V Frontal [CR] Stat 05/05/20 21:25 Ang Chest [CT] Stat EKG 12 Lead [EK] Routine 05/05/20 21:26 EKG Documentation Completion [RC] ASDIRECTED - Assessment/Plan Last 24 Hours: My Active Orders 05/05/20 19:10 Sodium Chloride 0.9% [Saline Flush] 10 ml FLUSH ASDIRECTED PRN Peripheral IV Insertion Adult [OM.PC] Routine EKG 12 Lead [EK] Routine 05/05/20 19:11 EKG Documentation Completion [RC] ASDIRECTED 05/05/20 19:15 Sodium Chloride 0.9% [Normal Saline] 1,000 ml IV ASDIRECTED 05/05/20 20:23 Chest 1V Frontal [CR] Stat 05/05/20 21:25 Ang Chest [CT] Stat EKG 12 Lead [EK] Routine 05/05/20 21:26 EKG Documentation Completion [RC] ASDIRECTED
[2020-05-05] MEDS ORDERED: Sodium Chloride 0.9% 10 ML Syringe FLUSH PRN (19:10)
[2020-05-05] MEDS ORDERED: Aspirin 81 MG Tab.Chew PO ONE (19:12)
[2020-05-05] MEDS ORDERED: Sodium Chloride 0.9% 500 ML IV ONE (19:12)
[2020-05-05] MEDS ORDERED: Morphine 2 MG/ML SYRINGE IVPUSH ONE (19:14)
[2020-05-05] MEDS ORDERED: Ondansetron 4 MG/2 ML SDV IVPUSH ONE (19:14)
[2020-05-05] MEDS ORDERED: Sodium Chloride 0.9% 1,000 ML IV SCH (19:15)
[2020-05-05] MEDS ORDERED: Magnesium Sulfate/Water 2 GM/50 ML Premix Bag IV ONE (21:00)
[2020-05-05] MEDS ORDERED: Iopamidol 755 Mg/ML 100 ML Bottle IV ONE (21:41)
[2020-05-06] MEDS ORDERED: Magnesium Oxide 400 MG Tab PO ONE (00:35)
--- NOTE | 2020-05-06 10:19 | CR ---
INDICATION: Chest pain. CHEST, ONE VIEW: An AP upright view of the chest was obtained 05/05/20 and compared with 04/20/20, again revealing the heart to be normal in size and shape. Neurostimulator is again noted at the lower middle thoracic spine. Overlying EKG leads are noted. Heart is normal in size and shape. The aorta is mildly tortuous. Pulmonary markings appear similar to the previous examination without a definite active infiltrate or effusion. However, slightly heavy markings at the lung bases, especially on the left, make it difficult to exclude minimal patchy bronchopneumonia. A minimal localized eventration is suggested at the right hemidiaphragm. IMPRESSION: 1. No definite acute process but difficult to exclude minimal patchy bronchopneumonia at the lung bases, especially on the left. 2. Minimal ASD aorta. 3. Neurostimulator again noted in place. MTDD
== END 2020-05-06 00:56 | disposition home or self-care (01) ==
LOC: FB.ED 18:28
DX: R07.9 Chest pain, unspecified (principal); J45.909 Unspecified asthma, uncomplicated; F32.9 Major depressive disorder, single episode, unspecified; F17.210 Nicotine dependence, cigarettes, uncomplicated; Z88.1 Allergy status to other antibiotic agents; Z88.0 Allergy status to penicillin; Z90.49 Acquired absence of other specified parts of digestive tract; Z98.51 Tubal ligation status; Z79.899 Other long term (current) drug therapy
CPT/HCPCS: 36415; 71045; 71275; 80053; 83735; 83880; 84484; 85025; 85379; 85610; 85730; 93005; 96374; 96375; 99285-25; A9270-GY; J2270; J2405; J7030; J7040; Q9967

== ENCOUNTER 2020-05-16 14:33 | Emergency (ER) | payer MEDICARE, OTHER ==
[2020-05-16] MEDS ORDERED: Furosemide 40 MG Tab PO ONE (15:16)
[2020-05-16] MEDS ORDERED: Sodium Chloride 0.9% 10 ML Syringe FLUSH PRN (15:22)
[2020-05-16] MEDS ORDERED: Alum Hydroxide/Mag Hydroxide 15 ML, Lidocaine 2% 15 ML PO ONE ×2 (15:25)
--- NOTE | 2020-05-16 16:26 | CR ---
INDICATION: Chest pain. CHEST ONE VIEW: An AP upright portable view of the chest was obtained 05/16/20 and compared with 05/05/20 and 04/20/20, again revealing the heart to be normal in size and shape. Neural stimulator is again noted in the midthoracic spine. Overlying EKG leads are noted. The aorta is minimally tortuous. An active infiltrate or effusion was not identified with markings similar to the previous examination. IMPRESSION: No acute process. MTDD
--- NOTE | 2020-05-16 16:28 | EDM.PDOC ---
ED HPI GENERAL MEDICAL PROBLEM - General Chief Complaint: Chest Pain Stated Complaint: CHEST PAIN Time Seen by Provider: 05/16/20 14:55 Source of Information: Reports: Patient History Limitations: Reports: No Limitations - History of Present Illness INITIAL COMMENTS - FREE TEXT/NARRATIVE: Complaining of retrosternal chest pain since this am , states like a pressure about 8/10 pain started in the back on wednesday and gradually got worse till she had to double over with pain in the epigastrium today yesterday pain in the epigastrium was mild then got worse , no nausea or vomi ting sharp retrosternal pain hads cardiac VALDEZ about one month ago Onset: Gradual Onset Date: 05/13/20 Duration: Day(s): (4), Intermittent Location: Reports: Chest, Back, Radiates to Quality: Reports: Dull, Pressure Severity: Moderate Improves with: Reports: None Worsens with: Reports: Movement Associated Symptoms: Reports: Chest Pain Treatments JUVENILE DETENTION OFFICER: Reports: Aspirin, EKG, IV/IO, Nitroglycerin Other Treatments JUVENILE DETENTION OFFICER: 81 mg asa today am 0 Pain Score (Numeric/FACES): 7 - Related Data Allergies Allergy/AdvReac Type Severity Reaction Status Date / Time azithromycin Allergy Rash Verified 05/16/20 14:48 erythromycin base Allergy Rash Verified 05/16/20 14:48 Penicillins Allergy Rash Verified 05/16/20 14:48 Home Meds: Home Meds Cevimeline HCl 30 mg PO TID 03/09/20 [History] DULoxetine [Cymbalta] 30 mg PO DAILY 03/09/20 [History] DULoxetine [Cymbalta] 60 mg PO BEDTIME 03/09/20 [History] Gabapentin [Neurontin] 900 mg PO TID 03/09/20 [History] Oxybutynin 10 mg PO DAILY 03/09/20 [History] traZODone HCl [Trazodone HCl] 200 mg PO BEDTIME 03/09/20 [History] Albuterol Sulfate [Albuterol Sulfate Hfa] 2 puff IH Q4H PRN 04/20/20 [History] Fluticasone Propion/Salmeterol [Advair 250-50 Diskus] 1 each IH BID 04/20/20 [History] Hydrocodone/Acetaminophen [[place] 5-325 Tablet] 1 each PO Q4H 04/20/20 [History] Varenicline [Chantix] 1 mg PO BID 04/20/20 [History] atorvaSTATin [Lipitor] 10 mg PO DAILY 04/20/20 [History] Past Medical History HEENT History: Reports: Glaucoma Cardiovascular History: Reports: High Cholesterol, Hypertension, SOB on Exertion Respiratory History: Reports: Asthma, COPD Gastrointestinal History: Reports: Other (See Below) Other Gastrointestinal History: history of stomach CA, in remission now Genitourinary History: Reports: Other (See Below) Other Genitourinary History: overactive bladder, doesn't completely empty. 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 Musculoskeletal History: Reports: Other (See Below) Other Musculoskeletal History: Has experienced leg pain since having non- Hodgkins Lymphoma, uses pain pump for control. On chronic narcotic pain management. Neurological History: Reports: Migraines, Seizure, Other (See Below) Other Neuro History: Episode of seizure-like activity, 04-20-20. hx migraines w/chemo, none now. Psychiatric History: Reports: Depression Hematologic History: Reports: Anemia Other Hematologic History: hx anemia Immunologic History: Reports: Other (See Below) Other Immunologic History: sjogrens Oncologic (Cancer) History: Reports: Non-Hodgkin's Lymphoma - Infectious Disease History Infectious Disease History: Reports: Chicken Pox, Measles, Mumps, Rubella - Past Surgical History HEENT Surgical History: Reports: Tonsillectomy Cardiovascular Surgical History: Reports: Other (See Below) GI Surgical History: Reports: Appendectomy Female Surgical History: Reports: Tubal Ligation, Other (See Below) Neurological Surgical History: Reports: None Musculoskeletal Surgical History: Reports: ORIF Oncologic Surgical History: Reports: None Dermatological Surgical History: Reports: None Social & Family History - Family History Family Medical History: Noncontributory - Tobacco Use Tobacco Use Status *Q: Former Tobacco User Packs/Tins Daily: 1.5 Used Tobacco, but Quit: Yes Month/Year Tobacco Last Used: 1 cigarette today - Caffeine Use Caffeine Use: Reports: Coffee Caffeine Use Comment: 2 cups coffe in am, 1-2 cokes during the day. - Recreational Drug Use Recreational Drug Use: Yes Recreational Drug Type: Reports: Cocaine Other Recreational Drug Type: quit IV cocaine 30 yrs ago. - Living Situation & Occupation Living situation: Reports: with Significant Other Occupation: Retired ED ROS GENERAL - Review of Systems Review Of Systems: See Below Constitutional: Reports: No Symptoms HEENT: Reports: No Symptoms Respiratory: Denies: Shortness of Breath, Wheezing, Pleuritic Chest Pain, Cough Cardiovascular: Reports: Chest Pain, Edema. Denies: Orthopnea, Palpitations Endocrine: Reports: Fatigue GI/Abdominal: Reports: No Symptoms : Reports: No Symptoms Musculoskeletal: Reports: No Symptoms Skin: Reports: No Symptoms Neurological: Reports: No Symptoms Psychiatric: Reports: No Symptoms Hematologic/Lymphatic: Reports: No Symptoms Immunologic: Reports: No Symptoms ED EXAM, GENERAL - Physical Exam Exam: See Below Exam Limited By: No Limitations General Appearance: Alert, WD/WN, No Apparent Distress Eye Exam: Bilateral Eye: EOMI Ear Exam: Bilateral Ear: TM normal Throat/Mouth: Normal Inspection Head: Atraumatic, Normocephalic Neck: Supple, Non-Tender Respiratory/Chest: Lungs Clear, Normal Breath Sounds Cardiovascular: Normal Peripheral Pulses, Regular Rate, Rhythm GI/Abdominal: Soft, Non-Tender Back Exam: Normal Inspection, Full Range of Motion Extremities: Normal Inspection, Pedal Edema, Joint Swelling Neurological: Alert, Oriented, CN II-XII Intact Psychiatric: Normal Affect Skin Exam: Warm Lymphatic: No Adenopathy Course - Vital Signs Last Recorded V/S: Last Vital Signs Temp 36.7 C 05/16/20 15:45 Pulse 66 05/16/20 15:45 Resp 18 05/16/20 15:45 BP 120/70 05/16/20 15:45 Pulse Ox 99 05/16/20 15:45 - Orders/Labs/Meds Orders: Active Orders 24 hr Category Date Time Status Chest 1V Frontal [CR] Stat Exams 05/16/20 15:24 Taken Sodium Chloride 0.9% [Saline Flush] Med 05/16/20 15:22 Active 10 ml FLUSH ASDIRECTED PRN Saline Lock Insert [OM.PC] Routine Oth 05/16/20 15:22 Ordered Medication Orders Sodium Chloride (Saline Flush) 10 ml FLUSH ASDIRECTED PRN PRN Reason: Keep Vein Open Last Admin: 05/16/20 16:01 Dose: 10 ml Documented by: STEPHEN Labs: Laboratory Tests 05/16/20 05/16/20 05/16/20 Range/Units 14:55 14:55 14:55 WBC (4.5-12.0) X10-3/uL RBC (3.23-5.20) x10(6)uL Hgb (11.5-15.5) g/dL Hct (30.0-51.3) % MCV (80-96) fL MCH (27.7-33.6) pg MCHC (32.2-35.4) g/dL RDW (11.5-15.5) % Plt Count (125-369) X10(3)uL Sodium 135 (135-145) mmol/L Potassium 4.3 (3.5-5.3) mmol/L Chloride 99 L (100-110) mmol/L Carbon Dioxide 32 (21-32) mmol/L BUN 17 (7-18) mg/dL Creatinine 0.9 (0.55-1.02) mg/dL Est Cr Clr Drug Dosing TNP Estimated GFR (MDRD) > 60 (>60) BUN/Creatinine Ratio 18.9 (9-20) Glucose 95 (80-116) mg/dL Calcium 8.6 (8.6-10.2) mg/dL Troponin I 23.7 (4.0-60.3) pg/mL C-Reactive Protein (0.5-0.9) mg/dL NT-Pro-B Natriuret Pep 468 H (<=125) pg/mL Urine Color (YELLOW) Urine Appearance (CLEAR) Urine pH (5.0-6.5) Ur Specific [place] (1.010-1.025) Urine Protein (NEGATIVE) mg/dL Urine Glucose (UA) (NORMAL) mg/dL Urine Ketones (NEGATIVE) mg/dL Urine Occult Blood (NEGATIVE) Urine Nitrite (NEGATIVE) Urine Bilirubin (NEGATIVE) Urine Urobilinogen (NEGATIVE) mg/dL Ur Leukocyte Esterase (NEGATIVE) Urine RBC (0-5) Urine WBC (0-5) Ur Squamous Epith Cells (NS,R,O) Urine Bacteria (NS) 05/16/20 05/16/20 05/16/20 Range/Units 14:55 14:55 15:45 WBC 7.9 (4.5-12.0) X10-3/uL RBC 4.29 (3.23-5.20) x10(6)uL Hgb 13.2 (11.5-15.5) g/dL Hct 39.0 (30.0-51.3) % MCV 90.9 (80-96) fL MCH 30.7 (27.7-33.6) pg MCHC 33.7 (32.2-35.4) g/dL RDW 14.7 (11.5-15.5) % Plt Count 231 (125-369) X10(3)uL Sodium (135-145) mmol/L Potassium (3.5-5.3) mmol/L Chloride (100-110) mmol/L Carbon Dioxide (21-32) mmol/L BUN (7-18) mg/dL Creatinine (0.55-1.02) mg/dL Est Cr Clr Drug Dosing Estimated GFR (MDRD) (>60) BUN/Creatinine Ratio (9-20) Glucose (80-116) mg/dL Calcium (8.6-10.2) mg/dL Troponin I (4.0-60.3) pg/mL C-Reactive Protein 1.0 H (0.5-0.9) mg/dL NT-Pro-B Natriuret Pep (<=125) pg/mL Urine Color Yellow (YELLOW) Urine Appearance Clear (CLEAR) Urine pH 6.0 (5.0-6.5) Ur Specific [place] 1.010 (1.010-1.025) Urine Protein Negative (NEGATIVE) mg/dL Urine Glucose (UA) Normal (NORMAL) mg/dL Urine Ketones Negative (NEGATIVE) mg/dL Urine Occult Blood Moderate H (NEGATIVE) Urine Nitrite Negative (NEGATIVE) Urine Bilirubin Negative (NEGATIVE) Urine Urobilinogen Normal (NEGATIVE) mg/dL Ur Leukocyte Esterase Negative (NEGATIVE) Urine RBC 0-5 (0-5) Urine WBC 0-5 (0-5) Ur Squamous Epith Cells Few H (NS,R,O) Urine Bacteria Few H (NS) Meds: Medications Generic Name Dose Route Start Last Admin Trade Name Freq PRN Reason Stop Dose Admin Sodium Chloride 10 ml 05/16/20 15:22 05/16/20 16:01 Saline Flush FLUSH 10 ml ASDIRECTED PRN Administration Keep Vein Open Discontinued Medications Generic Name Dose Route Start Last Admin Trade Name Freq PRN Reason Stop Dose Admin Al Hydroxide/Mg Hydroxide 15 0 ml 05/16/20 15:25 05/16/20 16:00 ml/ Lidocaine HCl 15 ml PO 05/16/20 15:26 15 ml ONETIME ONE Administration Furosemide 40 mg 05/16/20 15:16 05/16/20 16:07 Lasix PO 05/16/20 15:17 40 mg ONETIME ONE Administration - Re-Assessments/Exams Free Text/Narrative Re-Assessment/Exam: 05/16/20 16:26 was given 2 SL NTG and pain improved EkG done showed peaked T waves otherwise normal Troponin was negative chest pain resolved pt states she has appointment with the otr truck driver tomorrow Departure - Departure Time of Disposition: 16:30 Disposition: Home, Self-Care 01 Condition: Fair Clinical Impression: Atypical chest pain, NSTEMI (non-ST elevated myocardial infarction), SAMIA (generalized anxiety disorder) Referrals: Shayy Vallecillo NP [Primary Care Provider] - Additional Instructions: pt to continue with current medications To keep appointment with otr truck driver in am Sepsis Event Note (ED) - Evaluation Sepsis Screening Result: No Definite Risk - Focused Exam Vital Signs: Vital Signs Temp Pulse Resp BP Pulse Ox 05/16/20 15:45 36.7 C 66 18 120/70 99 05/16/20 15:40 65 18 109/64 94 L 05/16/20 14:50 36.9 C 67 18 111/66 95 - My Orders Last 24 Hours: My Active Orders 05/16/20 15:22 Sodium Chloride 0.9% [Saline Flush] 10 ml FLUSH ASDIRECTED PRN Saline Lock Insert [OM.PC] Routine 05/16/20 15:24 Chest 1V Frontal [CR] Stat - Assessment/Plan Last 24 Hours: My Active Orders 05/16/20 15:22 Sodium Chloride 0.9% [Saline Flush] 10 ml FLUSH ASDIRECTED PRN Saline Lock Insert [OM.PC] Routine 05/16/20 15:24 Chest 1V Frontal [CR] Stat
== END 2020-05-16 16:40 | disposition home or self-care (01) ==
LOC: FB.ED 14:33
DX: I21.4 Non-ST elevation (NSTEMI) myocardial infarction (principal); F41.1 Generalized anxiety disorder; E78.00 Pure hypercholesterolemia, unspecified; I10 Essential (primary) hypertension; J44.9 Chronic obstructive pulmonary disease, unspecified; F32.9 Major depressive disorder, single episode, unspecified; Z88.1 Allergy status to other antibiotic agents; Z88.0 Allergy status to penicillin; Z79.899 Other long term (current) drug therapy; Z87.891 Personal history of nicotine dependence
CPT/HCPCS: 36415; 71045; 80048; 81001; 83880; 84484; 85027; 86140; 93010; 99284; 99285; A9270; 93005

== ENCOUNTER 2020-08-12 22:46 | Emergency (ER) | payer MEDICARE, OTHER ==
[2020-08-12] MEDS ORDERED: Acetaminophen/HYDROcodone 325-5 MG Tab PO ONE (22:47)
[2020-08-12] MEDS ORDERED: Sodium Chloride 0.9% 10 ML Syringe FLUSH PRN (23:08)
[2020-08-12] MEDS ORDERED: Aspirin 81 MG Tab.Chew PO STA (23:10)
[2020-08-12] MEDS: Nitroglycerin 0.4 MG Tab.SL SL PRN ×2 (23:15→23:29)
--- NOTE | 2020-08-13 00:38 | EDM.PDOC ---
ED HPI GENERAL MEDICAL PROBLEM - General Chief Complaint: Chest Pain Stated Complaint: CHEST PAIN Time Seen by Provider: 08/12/20 22:55 Source of Information: Reports: Patient History Limitations: Reports: No Limitations - History of Present Illness INITIAL COMMENTS - FREE TEXT/NARRATIVE: Patient presented to the ED because of chest pain which started @ 2210 while patient was resting. The pain is sharp over the sternal area,5/10. There is no associated nausea,vomiting or dyspnea. There is no fever, chills, cough or cold symptoms. Treatments WEFT STRAIGHTENER: Reports: Aspirin left chest Pain Score (Numeric/FACES): 2 - Related Data Allergies Allergy/AdvReac Type Severity Reaction Status Date / Time azithromycin Allergy Rash Verified 05/16/20 14:48 erythromycin base Allergy Rash Verified 05/16/20 14:48 Penicillins Allergy Rash Verified 05/16/20 14:48 Home Meds: Home Meds Cevimeline HCl 30 mg PO TID 03/09/20 [History] DULoxetine [Cymbalta] 30 mg PO DAILY 03/09/20 [History] DULoxetine [Cymbalta] 60 mg PO BEDTIME 03/09/20 [History] Gabapentin [Neurontin] 900 mg PO TID 03/09/20 [History] Oxybutynin 10 mg PO DAILY 03/09/20 [History] traZODone HCl [Trazodone HCl] 200 mg PO BEDTIME 03/09/20 [History] Albuterol Sulfate [Albuterol Sulfate Hfa] 2 puff IH Q4H PRN 04/20/20 [History] Fluticasone Propion/Salmeterol [Advair 250-50 Diskus] 1 each IH BID 04/20/20 [History] Hydrocodone/Acetaminophen [[place] 5-325 Tablet] 1 each PO Q4H 04/20/20 [History] Varenicline [Chantix] 1 mg PO BID 04/20/20 [History] atorvaSTATin [Lipitor] 10 mg PO DAILY 04/20/20 [History] Past Medical History HEENT History: Reports: Glaucoma Cardiovascular History: Reports: High Cholesterol, Hypertension, SOB on Exertion Respiratory History: Reports: Asthma, COPD Gastrointestinal History: Reports: Other (See Below) Other Gastrointestinal History: history of stomach CA, in remission now Genitourinary History: Reports: Other (See Below) Other Genitourinary History: overactive bladder, doesn't completely empty. 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 Musculoskeletal History: Reports: Other (See Below) Other Musculoskeletal History: Has experienced leg pain since having non- Hodgkins Lymphoma, uses pain pump for control. On chronic narcotic pain management. tendon/nerve damage lower extremities Neurological History: Reports: Migraines, Seizure, Other (See Below) Other Neuro History: Episode of seizure-like activity, 04-20-20. hx migraines w/chemo, none now. 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 - Infectious Disease History Infectious Disease History: Reports: Chicken Pox, Measles, Mumps, Rubella - Past Surgical History HEENT Surgical History: Reports: Tonsillectomy Cardiovascular Surgical History: Reports: Other (See Below) GI Surgical History: Reports: Appendectomy Female Surgical History: Reports: Tubal Ligation, Other (See Below) Neurological Surgical History: Reports: None Musculoskeletal Surgical History: Reports: ORIF Oncologic Surgical History: Reports: None Dermatological Surgical History: Reports: None Social & Family History - Family History Family Medical History: No Pertinent Family History - Tobacco Use Tobacco Use Status *Q: Current Every Day Tobacco User Years of Tobacco use: 35 Packs/Tins Daily: 1 - Caffeine Use Caffeine Use: Reports: Coffee Caffeine Use Comment: 2 cups coffe in am, 1-2 cokes during the day. - Living Situation & Occupation Living situation: Reports: with Significant Other Occupation: Retired ED ROS GENERAL - Review of Systems Review Of Systems: See Below Constitutional: Reports: No Symptoms HEENT: Reports: No Symptoms Respiratory: Reports: No Symptoms Cardiovascular: Reports: Chest Pain Endocrine: Reports: No Symptoms GI/Abdominal: Reports: No Symptoms : Reports: No Symptoms Musculoskeletal: Reports: No Symptoms Skin: Reports: No Symptoms ED EXAM, GENERAL - Physical Exam Exam: See Below Exam Limited By: No Limitations General Appearance: Alert Ears: Normal External Exam Nose: Normal Inspection, Normal Mucosa, No Blood Throat/Mouth: Normal Inspection, Normal Lips, Normal Teeth Head: Atraumatic, Normocephalic Neck: Normal Inspection, Supple, Non-Tender, Full Range of Motion Respiratory/Chest: No Respiratory Distress, Lungs Clear, Normal Breath Sounds Cardiovascular: Normal Peripheral Pulses, Regular Rate, Rhythm, No Edema, No Gallop GI/Abdominal: Normal Bowel Sounds, Soft, Non-Tender, No Organomegaly Back Exam: Normal Inspection, Full Range of Motion Extremities: Normal Inspection, Normal Range of Motion, Non-Tender Neurological: Alert, Oriented, CN II-XII Intact Course - Vital Signs Text/Narrative:: Labs/EKG/CXR was discussed with patient EKG-NSR Trop-neg ASA 324 mg po x1 NTG 0.4 mg SL x2 Last Recorded V/S: Last Vital Signs Temp 36.7 C 08/12/20 23:35 Pulse 70 08/12/20 23:35 Resp 18 08/12/20 23:35 BP 101/56 L 08/12/20 23:35 Pulse Ox 99 08/12/20 23:35 - Orders/Labs/Meds Orders: Active Orders 24 hr Category Date Time Status Chest 1V Frontal [CR] Stat Exams 08/13/20 00:32 Taken Saline Lock Insert [OM.PC] Routine Oth 08/12/20 23:08 Ordered EKG 12 Lead [EK] Routine Ther 08/12/20 23:08 Ordered Labs: Laboratory Tests 08/12/20 08/12/20 08/12/20 Range/Units 23:15 23:25 23:25 WBC 7.3 (3.0-10.3) x10-3/uL RBC 4.36 (3.60-5.20) x10(6)uL Hgb 13.4 (11.4-15.5) g/dL Hct 40.0 (34.2-48.2) % MCV 91.7 (76.7-100.5) fL MCH 30.7 (23.9-33.9) pg MCHC 33.5 (31.9-34.8) g/dL RDW 14.6 (12.3-16.5) % Plt Count 245 (151-488) x10(3)uL MPV 7.7 (7.1-12.4) fL Neut % (Auto) 46.5 (30.8-76.2) % Lymph % (Auto) 36.6 (18.4-52.1) % [place] % (Auto) 9.5 (4.4-15.7) % Eos % (Auto) 6.3 (0.6-8.1) % Baso % (Auto) 1.1 (0.2-1.5) % Neut # (Auto) 3.4 (1.5-6.3) x10-3/uL Lymph # (Auto) 2.7 (1.0-4.4) x10-3/uL [place] # (Auto) 0.7 (0.3-1.0) x10-3/uL Eos # (Auto) 0.5 (0.0-0.8) x10-3/uL Baso # (Auto) 0.1 (0.0-0.1) x10-3/uL PT 10.5 (9.0-11.1) sec INR 0.97 L (1.00-1.24) APTT 25.1 (24.4-33.2) SECONDS Sodium 139 (135-145) mmol/L Potassium 3.8 (3.5-5.3) mmol/L Chloride 101 (100-110) mmol/L Carbon Dioxide 32 (21-32) mmol/L BUN 15 (7-18) mg/dL Creatinine 1.0 (0.55-1.02) mg/dL Est Cr Clr Drug Dosing 61.09 mL/min Estimated GFR (MDRD) 57 L (>60) BUN/Creatinine Ratio 15.0 (9-20) Glucose 127 H (80-116) mg/dL Calcium 8.3 L (8.6-10.2) mg/dL Total Bilirubin 0.3 (0.1-1.3) mg/dL AST 16 D (5-25) IU/L ALT 19 (12-36) U/L Alkaline Phosphatase 106 (56-112) IU/L Troponin I (4.0-60.3) pg/mL Total Protein 7.2 (6.0-8.0) g/dL Albumin 3.4 L (3.5-5.2) g/dL Globulin 3.8 g/dL Albumin/Globulin Ratio 0.9 01/18/21 Range/Units 23:25 WBC (3.0-10.3) x10-3/uL RBC (3.60-5.20) x10(6)uL Hgb (11.4-15.5) g/dL Hct (34.2-48.2) % MCV (76.7-100.5) fL MCH (23.9-33.9) pg MCHC (31.9-34.8) g/dL RDW (12.3-16.5) % Plt Count (151-488) x10(3)uL MPV (7.1-12.4) fL Neut % (Auto) (30.8-76.2) % Lymph % (Auto) (18.4-52.1) % [place] % (Auto) (4.4-15.7) % Eos % (Auto) (0.6-8.1) % Baso % (Auto) (0.2-1.5) % Neut # (Auto) (1.5-6.3) x10-3/uL Lymph # (Auto) (1.0-4.4) x10-3/uL [place] # (Auto) (0.3-1.0) x10-3/uL Eos # (Auto) (0.0-0.8) x10-3/uL Baso # (Auto) (0.0-0.1) x10-3/uL PT (9.0-11.1) sec INR (1.00-1.24) APTT (24.4-33.2) SECONDS Sodium (135-145) mmol/L Potassium (3.5-5.3) mmol/L Chloride (100-110) mmol/L Carbon Dioxide (21-32) mmol/L BUN (7-18) mg/dL Creatinine (0.55-1.02) mg/dL Est Cr Clr Drug Dosing mL/min Estimated GFR (MDRD) (>60) BUN/Creatinine Ratio (9-20) Glucose (80-116) mg/dL Calcium (8.6-10.2) mg/dL Total Bilirubin (0.1-1.3) mg/dL AST (5-25) IU/L ALT (12-36) U/L Alkaline Phosphatase (56-112) IU/L Troponin I 5.8 (4.0-60.3) pg/mL Total Protein (6.0-8.0) g/dL Albumin (3.5-5.2) g/dL Globulin g/dL Albumin/Globulin Ratio Meds: Medications Discontinued Medications Generic Name Dose Route Start Last Admin Trade Name Tejal PRN Reason Stop Dose Admin Aspirin 324 mg 08/12/20 23:10 08/12/20 23:27 Aspirin PO 08/12/20 23:11 324 mg NOW STA Administration Nitroglycerin 0.4 mg 08/12/20 23:10 08/12/20 23:29 Nitrostat SL 0.4 mg Q5M PRN Administration Chest Pain Sodium Chloride 10 ml 08/12/20 23:08 Saline Flush FLUSH ASDIRECTED PRN Keep Vein Open Departure - Departure Time of Disposition: 12:45 Disposition: Home, Self-Care 01 Condition: Good Clinical Impression: Chest pain Instructions: Nonspecific Chest Pain, Adult Referrals: Alonso Smith MD [Primary Care Provider] - Forms: ED Department Discharge Additional Instructions: Please read chest pain Nitroglycerin 0.4 mg under your tongue every 5 minutes up to 3 doses as needed for chest pain Follow up with your doctor this week Sepsis Event Note (ED) - Evaluation Sepsis Screening Result: No Definite Risk - Focused Exam Vital Signs: Vital Signs Temp Pulse Resp BP BP Pulse Ox 08/12/20 23:35 36.7 C 70 18 101/56 L 99 08/12/20 23:29 106/61 08/12/20 23:15 106/61 08/12/20 22:50 36.7 C 72 18 122/75 98 - My Orders Last 24 Hours: My Active Orders 08/12/20 23:08 Saline Lock Insert [OM.PC] Routine EKG 12 Lead [EK] Routine 08/13/20 00:32 Chest 1V Frontal [CR] Stat - Assessment/Plan Last 24 Hours: My Active Orders 08/12/20 23:08 Saline Lock Insert [OM.PC] Routine EKG 12 Lead [EK] Routine 08/13/20 00:32 Chest 1V Frontal [CR] Stat
--- NOTE | 2020-08-13 11:08 | CR ---
INDICATION: Chest pain. CHEST ONE VIEW: An AP upright view of the chest was obtained 08/13/20 and compared with 05/16/20 and 05/05/20. The heart remains normal in size and shape. The aorta is only minimally tortuous. Overlying EKG leads are noted. Neural stimulator leads again noted in the mid to lower thoracic spine. Patchy infiltration is noted throughout the lungs which may be on the basis of unusual pneumonia such as a viral pneumonia and should be correlated clinically. However, no gross consolidating pneumonia or effusion was seen. IMPRESSION: Patchy mostly interstitial infiltrations scattered throughout the lungs, etiology indeterminate, but could be on the basis of unusual pneumonia, possibly even COVID-19 - correlate clinically. Lung edema would also be a possibility, but is felt to be less likely. MTDD
== END 2020-08-13 01:05 | disposition home or self-care (01) ==
LOC: FB.ED 22:46
DX: R07.9 Chest pain, unspecified (principal); E78.00 Pure hypercholesterolemia, unspecified; I10 Essential (primary) hypertension; J44.9 Chronic obstructive pulmonary disease, unspecified; G43.909 Migraine, unspecified, not intractable, without status migrainosus; Z72.0 Tobacco use; Z88.1 Allergy status to other antibiotic agents; Z88.0 Allergy status to penicillin; Z79.899 Other long term (current) drug therapy
CPT/HCPCS: 36415; 71045; 80053; 84484; 85025; 85610; 85730; 93005; 99284; 99285-25; A9270-GY